=== PATIENT | female | born 1950 | race Caucasian/White ===

== ENCOUNTER 2024-11-12 08:54 | Outpatient (CLI) | payer BC | END 2024-11-12 08:55 | disposition home or self-care (01) | LOC: CSHSLEEP 08:54 | PROVIDERS: ATTEND Internal Medicine | DX: G47.33 Obstructive sleep apnea (adult) (pediatric) (principal); R53.83 Other fatigue; R06.83 Snoring | CPT/HCPCS: 95800 ==